=== PATIENT | female | born 1955 | race Caucasian/White ===

== ENCOUNTER 2019-06-25 09:20 | Day surgery (SDC) | payer OTHER ==
[2019-06-20 11:33] VITALS: BMI 29.2
[2019-06-25 09:49] VITALS: TEMP 97.9
[2019-06-25 11:16] VITALS: BP 101/59; PULSE 63
== END 2019-06-25 11:10 | disposition home or self-care (01) ==
LOC: FASU-ENDO 09:20
PROVIDERS: ATTEND Internal Medicine Gastroenterology
PROC: 0DJD8ZZ Inspection of Lower Intestinal Tract, Via Natural or Artificial Opening Endoscopic (ICD-10-PCS; principal; 2019-06-25 10:12)
DX: Z86.010 Personal history of colon polyps (principal); K64.8 Other hemorrhoids